=== PATIENT | female | born 1970 | race African-American/Black ===

== ENCOUNTER 2020-01-27 10:58 | Emergency (ER) | payer OTHER, SELFPAY ==
--- NOTE | ~2020-01-27 | XR_ITS ---
XR knee RT 3V DATE: 01/27/2020 12:49 INDICATION: Fall. Right knee injury, pain, swelling TECHNIQUE: 4 views including crosstable lateral COMPARISON: None FINDINGS: There is prominent enthesopathy of the superior pole of the patella at the quadriceps tendo n insertion. There is mild periarticular spurring of the patella. There is mild loss of height of medial compartment joint space. Mild hypertrophic change of the tibia l spines. No fracture or dislocation or joint effusion. No periosteal reaction or bone destruction. IMPRESSION: Osteoarthritis Reviewed, dictated and finalized at location A. IMPRESSION: Osteoarthritis
--- NOTE | ~2020-01-27 | CT_ITS ---
EXAMINATION: CT cervical spine wo con DATE: 01/27/2020 12:33 INDICATION: Head injury. TECHNIQUE: Computed tomography (CT) of the cervical spine was performed without intravenous contrast. Automated exposure control and iterative reconstruction technique were employed. The dose-length pro duct was 549.94 mGy-cm. COMPARISON: None FINDINGS: There is kyphosis and 6 degrees dextrocurvature of cervical spine. Vertebral body heights a nd intervertebral disc heights are normal. The following disc levels are specifically discussed: C2-C3: There is no uncovertebral joint osteoarthritis. There is moderate left facet joint osteoarthri tis. There is no neural foraminal stenosis. There is no central canal stenosis. C3-C4: There is no uncovertebral joint osteoarthritis. There is no facet joint osteoarthritis. There is no neural foraminal stenosis. There is no central canal stenosis. C4-C5: There is no uncovertebral joint osteoarthritis. There is mild left facet joint osteoarthritis. There is no neural foraminal stenosis. There is no central canal stenosis. C5-C6: There is no uncovertebral joint osteoarthritis. There is mild left facet joint osteoarthritis. There is no neural foraminal stenosis. There is no central canal stenosis. C6-C7: There is no uncovertebral joint osteoarthritis. There is no facet joint osteoarthritis. There is no neural foraminal stenosis. There is no central canal stenosis. C7-T1: There is no uncovertebral joint osteoarthritis. There is mild bilateral facet joint osteoarthr itis. There is no neural foraminal stenosis. There is no central canal stenosis. IMPRESSION: 1. No fracture. 2. Cervical facet joint osteoarthritis. Reviewed, dictated and finalized at location B.
--- NOTE | ~2020-01-27 | XR_ITS ---
XR lumbar spine min 4V DATE: 01/27/2020 12:50 INDICATION: Fall. Back injury, back pain TECHNIQUE: AP, lateral, coned lateral lumbosacral and bilateral oblique views COMPARISON: None FINDINGS: The lumbar vertebrae are normally aligned. No fracture or bone destruction or spondylolisth esis is evident. There is severe degenerative disease at L5-S1. There is mild degenerative disease at T12-L1, L3-4 and L4-5. The sacroiliac joints are normal. IMPRESSION: Degenerative disc disease, most pronounced at L5-S1 Reviewed, dictated and finalized at location A.
--- NOTE | ~2020-01-27 | CT_ITS ---
EXAMINATION: CT brain wo con DATE: 01/27/2020 12:33 INDICATION: Head injury. TECHNIQUE: Computed tomography (CT) of the head was performed without intravenous contrast. The mA wa s adjusted according to patient size. Iterative reconstruction technique was employed. The dose-lengt h product was 605.33 mGy-cm. COMPARISON: None FINDINGS: There is no intracranial hemorrhage, acute infarction, or abnormal intracranial mass lesion . The ventricles are normal in size. The orbits are normal. There is mild mucosal thickening in the p aranasal sinuses. There are trace mastoid effusions. IMPRESSION: 1. Normal brain. Reviewed, dictated and finalized at location B. IMPRESSION: 1. Normal brain.
[2020-01-27 11:02] VITALS: BP 158/78; PULSE 76; RESP 18; TEMP 36.2; O2SAT 100
[2020-01-27] MEDS: ACETAMINOPHEN 500 MG TABLET 1000 MG PO (11:14)
--- NOTE | 2020-01-27 11:18 | ED.GENADULT ---
HPI - General Adult General Chief complaint: Fall <Paul Pavon PA-C - Last Filed: 01/27/20 13:10> Stated complaint: fall <Paul Pavon PA-C - Last Filed: 01/27/20 13:10> Time Seen by Provider: 01/27/20 11:04 <Paul Pavon PA-C - Last Filed: 01/27/20 13:10> Source: patient <Paul Pavon PA-C - Last Filed: 01/27/20 13:10> Mode of arrival: ambulatory <Paul Pavon PA-C - Last Filed: 01/27/20 13:10> Limitations: no limitations <Paul Pavon PA-C - Last Filed: 01/27/20 13:10> History of Present Illness HPI narrative: Patient is a 49-year-old female who presents to emergency department for evaluation of injuries related to a ground-level fall that occurred a day and a half ago after slipping on a wet surface falling striking the posterior head with momentary loss of consciousness has since had moderate to severe pain to the posterior head with associated nausea. Patient denies anticoagulant use. Patient also notes neck and low back pain and right knee pain. Patient has not taken anything for her symptoms and presents per private vehicle in mild acute pain <Paul Pavon PA-C - Last Filed: 01/27/20 13:10> Related Data Allergies/adverse reactions: Allergies Allergy/AdvReac Type Severity Reaction Status Date / Time No Known Allergies Allergy Verified 01/27/20 11:07 <aPul Pavon PA-C - Last Filed: 01/27/20 13:10> Review of Systems Review of Systems: All systems reviewed & are unremarkable except as noted in HPI and below <Paul Pavon PA-C - Last Filed: 01/27/20 13:10> PMFSH Past Medical History Medical History: Medical History (Updated 01/27/20 @ 13:09 by Paul Pavon PA-C) Obese <Paul Pavon PA-C - Last Filed: 01/27/20 13:10> Social History Social History: Social History (Updated 01/27/20 @ 11:19 by Paul Pavon PA-C) Smoking status: Never smoker Gender identity (if verbalized by the patient): Female <Paul Pavon PA-C - Last Filed: 01/27/20 13:10> Exam Narrative: Exam Narrative: GENERAL: Well-appearing, well-nourished, and in no acute distress. HEAD: Normocephalic, tenderness of the posterior right scalp no deformity noted EYES: PERRLA and EOMI. ENT: Nares clear, no rhinorrhea or epistaxis. Mucous membranes moist. Oropharynx without tonsillar hypertrophy exudate or other lesions. NECK: Supple. No adenopathy or masses. CHEST: Clear to auscultation. No respiratory distress. No wheezes rales or rhonchi HEART: Regular rate and rhythm. No murmur heard. Normal peripheral pulses. EXTREMITIES: Normal range of motion. No edema. Tenderness of the right knee. Midline and paraspinal cervical and lumbar tenderness no thoracic tenderness no deformities noted SKIN: Warm, dry, no rash. NEURO: No focal deficits. Alert and oriented x3. Cranial nerves II through XII grossly intact PSYCH: Normal mood and affect. <QING Stanton Last Filed: 01/27/20 13:10> Course Course Emergency Course: Patient in the room at this time aware of case findings treatment plan and diagnosis agreeing to follow-up as instructed felt appropriate for outpatient reevaluation no high risk changes in the imaging patient was made aware of the imaging <QING Stanton Last Filed: 01/27/20 13:10> Vital Signs Vital signs: Vital Signs Temperature 97.2 F L 01/27/20 11:02 Pulse Rate 76 01/27/20 11:02 Respiratory Rate 18 01/27/20 11:02 Blood Pressure 158/78 H 01/27/20 11:02 Pulse Oximetry 100 01/27/20 11:02 Temperature 97.2 F L 01/27/20 11:02 Pulse Rate 76 01/27/20 11:02 Respiratory Rate 18 01/27/20 11:02 Blood Pressure 158/78 H 01/27/20 11:02 Pulse Oximetry 100 01/27/20 11:02 <QING Stanton Last Filed: 01/27/20 13:10> Vital Signs Temperature 97.2 F L 01/27/20 11:02 Pulse Rate 76 01/27/20 11:02 Respiratory Rate 18 01/27/20 11:02
--- NOTE | 2020-01-27 12:17 | PC.NURSE ---
Awaiting radiology availability.
== END 2020-01-27 13:25 | disposition home or self-care (01) ==
PROVIDERS: Emergency Provider Emergency Medicine
DX: S09.90XA Unspecified injury of head, initial encounter (principal); S16.1XXA Strain of muscle, fascia and tendon at neck level, initial encounter; S39.012A Strain of muscle, fascia and tendon of lower back, initial encounter; S80.01XA Contusion of right knee, initial encounter; W01.0XXA Fall on same level from slipping, tripping and stumbling without subsequent striking against object, initial encounter
CPT/HCPCS: 70450; 72110; 72125; 73562; 99284; A9270